=== PATIENT | male | born 1965 | race Caucasian/White ===

== ENCOUNTER 2017-06-17 18:32 | Emergency (ER) | payer OTHER ==
[~2017-06-17] VITALS: Ht 162.5 cm; Wt 54.4 kg
[~2017-06-17 18:32] MED LIST: B-1100 MG PO
[2017-06-17] MEDS ORDERED: CLINDAMYCIN HC300 MG PO (18:52)
[2017-06-17] MEDS ORDERED: NAPROSYN500 MG PO (18:52)
== END 2017-06-17 19:08 | disposition home or self-care (01) ==
LOC: ED 18:32
DX: K04.7 Periapical abscess without sinus (principal); F17.200 Nicotine dependence, unspecified, uncomplicated; Z98.890 Other specified postprocedural states; Z88.6 Allergy status to analgesic agent; Z91.030 Bee allergy status

== ENCOUNTER 2017-07-30 21:20 | Emergency (ER) | payer OTHER ==
[~2017-07-30] VITALS: Ht 162.5 cm; Wt 54.4 kg
[~2017-07-30 21:20] MED LIST changes: +CLINDAMYCIN HC300 MG PO; +NAPROSYN500 MG PO
[2017-07-30] MEDS ORDERED: AMLODIPINE BESY10 MG PO (21:31)
[2017-07-30] MEDS ORDERED: IBU800 M1 PO (21:31)
[2017-07-30] MEDS ORDERED: BREO ELLIPTA 11 EACH INH (21:32)
[2017-07-30 22:12] LABS: HEMATOCRIT 35.5 % (42.0-52.0); HEMOGLOBIN 11.9 g/dl (14.0-18.0); MEAN CELL VOLUME 93.9 fl (80.0-94.0); MEAN CORPUSCULAR HGB 31.5 pg (27.0-31.0); MEAN CORPUSCULAR HGB CONC 33.5 g/dl (33.0-37.0); MEAN PLATELET VOLUME 8.7 fl (9.6-12.3); PLATELET COUNT AUTOMATED 480 10*3/uL (130-400); RED BLOOD COUNT 3.78 10*6/uL (4.50-5.90); WHITE BLOOD COUNT 12.6 10*3/uL (4.8-10.8)
[2017-07-30 22:23] LABS: BUN 13 mg/dl (7-24); CHLORIDE 98 mmol/L (98-107); CREATININE 0.89 mg/dL (0.70-1.30); POTASSIUM 4.2 mmol/L (3.5-5.1); SODIUM 134 mmol/L (136-145)
[2017-07-30 22:31] LABS: ATYPICAL LYMPHS 3 % (0-0); BASOPHILS 2 % (0-1); PLATELET SUFFICIENCY NORMAL (NORMAL); TOTAL CELLS COUNTED 100 #CELLS
[2017-07-30 23:51] LABS: BILIRUBIN NEGATIVE (NEGATIVE); BLOOD NEGATIVE (NEGATIVE); CLARITY SL CLOUDY (CLEAR); COLOR YELLOW (YELLOW); GLUCOSE NEGATIVE (NEGATIVE); KETONE NEGATIVE (NEGATIVE); LEUKO ESTERASE NEGATIVE (NEGATIVE); NITRITE NEGATIVE (NEGATIVE); SPECIFIC GRAVITY 1.015 (1.005-1.030); UROBILINOGEN 0.2 E.U./dl (0.2-1.0)
[2017-07-31] MEDS ORDERED: Percocet 325 MG1 TAB PO (01:00)
[2017-08-01] MEDS ORDERED: Vitamin D PO (13:50)
== END 2017-07-31 01:13 | disposition left against medical advice (07) ==
LOC: ED 21:20
PROVIDERS: Emergency Medicine Emergency Medical Services
DX: M84.48XA Pathological fracture, other site, initial encounter for fracture (principal); C06.9 Malignant neoplasm of mouth, unspecified; F17.200 Nicotine dependence, unspecified, uncomplicated; Z90.89 Acquired absence of other organs; Z98.890 Other specified postprocedural states; Z79.899 Other long term (current) drug therapy; Z91.030 Bee allergy status; Z88.6 Allergy status to analgesic agent

== ENCOUNTER 2017-07-31 20:30 | Inpatient (IN) | payer OTHER ==
[~2017-07-31] VITALS: Ht 162.5 cm; Wt 53.6 kg
[~2017-07-31 20:30] MED LIST changes: +AMLODIPINE BESY10 MG PO; +BREO ELLIPTA 11 EACH INH; +IBU800 M1 PO; +Percocet 325 MG1 TAB PO
[2017-07-31 20:34] VITALS: BP 131/75
[2017-07-31 20:51] LABS: BASO # 0.1 10*3/uL (0.0-0.1); BASO % 0.9 % (0.0-1.0); EOS # 0.1 10*3/uL (0.0-0.4); EOS % 1.3 % (1.0-4.0); HEMATOCRIT 31.4 % (42.0-52.0); HEMOGLOBIN 10.9 g/dl (14.0-18.0); LYMPH # 2.4 10*3/uL (1.3-4.4); LYMPH % 24.5 % (27.0-41.0); MEAN CORPUSCULAR HGB 31.6 pg (27.0-31.0); MEAN CORPUSCULAR HGB CONC 34.7 g/dl (33.0-37.0); MEAN PLATELET VOLUME 8.5 fl (9.6-12.3); MONO # 1.2 10*3/uL (0.1-1.0); MONO % 12.2 % (3.0-9.0); NEUT # 5.9 10*3/uL (2.3-7.9); NEUT % 60.6 % (47.0-73.0); PLATELET COUNT AUTOMATED 434 10*3/uL (130-400); RED BLOOD COUNT 3.45 10*6/uL (4.50-5.90); RED CELL DISTRI WIDTH 12.8 % (0-14.5); WHITE BLOOD COUNT 9.8 10*3/uL (4.8-10.8)
[2017-07-31 21:00] LABS: BUN 6 mg/dl (7-24); CHLORIDE 91 mmol/L (98-107); CREATININE 0.62 mg/dL (0.70-1.30); POTASSIUM 3.3 mmol/L (3.5-5.1); SODIUM 126 mmol/L (136-145)
[2017-07-31 22:00] VITALS: BP 115/91
[2017-07-31 22:45] VITALS: BP 156/85
[2017-08-01 04:00] VITALS: BP 139/76
[2017-08-01 06:13] LABS: BASO # 0.1 10*3/uL (0.0-0.1); EOS # 0.3 10*3/uL (0.0-0.4); HEMATOCRIT 32.5 % (42.0-52.0); HEMOGLOBIN 11.2 g/dl (14.0-18.0); LYMPH % 20.4 % (27.0-41.0); MEAN CELL VOLUME 92.1 fl (80.0-94.0); MEAN CORPUSCULAR HGB 31.7 pg (27.0-31.0); MEAN CORPUSCULAR HGB CONC 34.5 g/dl (33.0-37.0); MONO # 1.3 10*3/uL (0.1-1.0); MONO % 13.2 % (3.0-9.0); NEUT # 6.1 10*3/uL (2.3-7.9); PLATELET COUNT AUTOMATED 451 10*3/uL (130-400); RED BLOOD COUNT 3.53 10*6/uL (4.50-5.90); RED CELL DISTRI WIDTH 12.9 % (0-14.5); WHITE BLOOD COUNT 9.8 10*3/uL (4.8-10.8)
[2017-08-01 06:31] LABS: ACT PARTIAL THROMBO TIME 24.3 SECONDS (20.8-31.5); INTERNATIONAL NORM RATIO 0.9 (2.0-3.5)
[2017-08-01 06:33] LABS: ALBUMIN 2.8 gm/dl (3.1-4.5); BUN 5 mg/dl (7-24); CHLORIDE 98 mmol/L (98-107); CHOLESTEROL 111 mg/dL (<200); CREATININE 0.59 mg/dL (0.70-1.30); PHOSPHOROUS 2.8 mg/dL (2.5-4.9); POTASSIUM 3.7 mmol/L (3.5-5.1); SGOT/AST 11 IU/L (3-35); SGPT/ALT 16 U/L (12-78); SODIUM 133 mmol/L (136-145); TOTAL PROTEIN 6.5 gm/dL (6.4-8.2); TRIGLYCERIDES 124 mg/dl (<150); VLDL CHOLESTEROL 25 mg/dL (6-40)
[2017-08-01 06:39] LABS: ALKALINE PHOSPHATASE 79 U/L (45-117); HDL CHOLESTEROL 40 mg/dl (40-60); LDL CHOLESTEROL 46 mg/dL (9-159)
[2017-08-01 08:00] VITALS: BP 141/79
[2017-08-01 12:00] VITALS: BP 155/86
[2017-08-01] MEDS ORDERED: Vitamin D PO (13:50)
[2017-08-01 16:00] VITALS: BP 150/76
== END 2017-08-01 20:37 | disposition short-term general hospital (02) | DRG 948 ==
LOC: ED 20:30 → EDHOLD 21:40 → 4E 22:00
PROVIDERS: Emergency Medicine Emergency Medical Services; Internal Medicine Nephrology
DX: G89.3 Neoplasm related pain (acute) (chronic) (principal); E87.8 Other disorders of electrolyte and fluid balance, not elsewhere classified; E44.0 Moderate protein-calorie malnutrition; M84.48XA Pathological fracture, other site, initial encounter for fracture; E87.1 Hypo-osmolality and hyponatremia; R13.10 Dysphagia, unspecified; C76.0 Malignant neoplasm of head, face and neck; D72.810 Lymphocytopenia; D72.821 Monocytosis (symptomatic); D64.9 Anemia, unspecified; Z96.641 Presence of right artificial hip joint; D47.3 Essential (hemorrhagic) thrombocythemia; E87.6 Hypokalemia; J44.9 Chronic obstructive pulmonary disease, unspecified; F17.210 Nicotine dependence, cigarettes, uncomplicated; I10 Essential (primary) hypertension; M16.0 Bilateral primary osteoarthritis of hip; E55.9 Vitamin D deficiency, unspecified; Z71.6 Tobacco abuse counseling; Z88.6 Allergy status to analgesic agent; Z91.030 Bee allergy status; Z79.899 Other long term (current) drug therapy; Z90.89 Acquired absence of other organs; Z83.3 Family history of diabetes mellitus; Z68.20 Body mass index [BMI] 20.0-20.9, adult

== ENCOUNTER 2017-09-12 11:00 | Emergency (ER) | payer OTHER ==
[~2017-09-12] VITALS: Ht 162.5 cm; Wt 54.4 kg
[~2017-09-12 11:00] MED LIST changes: +Vitamin D PO
== END 2017-09-12 11:52 | disposition home or self-care (01) ==
LOC: ED 11:00
DX: Z48.01 Encounter for change or removal of surgical wound dressing (principal); F17.200 Nicotine dependence, unspecified, uncomplicated; J44.9 Chronic obstructive pulmonary disease, unspecified; M19.90 Unspecified osteoarthritis, unspecified site; I10 Essential (primary) hypertension; Z98.890 Other specified postprocedural states; Z79.899 Other long term (current) drug therapy; Z90.89 Acquired absence of other organs; Z91.030 Bee allergy status; Z88.6 Allergy status to analgesic agent; Z85.89 Personal history of malignant neoplasm of other organs and systems

== ENCOUNTER 2017-09-27 12:55 | Emergency (ER) | payer OTHER ==
[~2017-09-27] VITALS: Ht 172.7 cm; Wt 72.6 kg
== END 2017-09-27 13:37 | disposition home or self-care (01) ==
LOC: ED 12:55
DX: K94.23 Gastrostomy malfunction (principal); F17.200 Nicotine dependence, unspecified, uncomplicated; Z90.89 Acquired absence of other organs; Z98.890 Other specified postprocedural states; Z79.899 Other long term (current) drug therapy; Z91.030 Bee allergy status; Z88.6 Allergy status to analgesic agent; Z85.818 Personal history of malignant neoplasm of other sites of lip, oral cavity, and pharynx

== ENCOUNTER 2017-10-03 21:58 | Emergency (ER) | payer OTHER ==
[~2017-10-03] VITALS: Ht 162.5 cm; Wt 49.9 kg
[2017-10-03 22:51] LABS: BASO % 0.3 % (0.0-1.0); EOS % 0.4 % (1.0-4.0); HEMATOCRIT 39.5 % (42.0-52.0); HEMOGLOBIN 13.5 g/dl (14.0-18.0); LYMPH # 1.2 10*3/uL (1.3-4.4); LYMPH % 17.7 % (27.0-41.0); MEAN CELL VOLUME 84.9 fl (80.0-94.0); MEAN CORPUSCULAR HGB CONC 34.2 g/dl (33.0-37.0); MEAN PLATELET VOLUME 9.5 fl (9.6-12.3); MONO # 0.8 10*3/uL (0.1-1.0); MONO % 11.6 % (3.0-9.0); NEUT # 4.7 10*3/uL (2.3-7.9); NEUT % 69.7 % (47.0-73.0); PLATELET COUNT AUTOMATED 181 10*3/uL (130-400); RED BLOOD COUNT 4.65 10*6/uL (4.50-5.90); RED CELL DISTRI WIDTH 15.3 % (0-14.5); WHITE BLOOD COUNT 6.8 10*3/uL (4.8-10.8)
[2017-10-03 23:09] LABS: ALBUMIN 3.9 gm/dl (3.1-4.5); ALKALINE PHOSPHATASE 127 U/L (45-117); BUN 9 mg/dl (7-24); CHLORIDE 86 mmol/L (98-107); CREATININE 0.76 mg/dL (0.70-1.30); POTASSIUM 3.8 mmol/L (3.5-5.1); SGOT/AST 33 IU/L (3-35); SGPT/ALT 25 U/L (12-78); SODIUM 126 mmol/L (136-145); TOTAL PROTEIN 8.1 gm/dL (6.4-8.2)
[2017-10-03 23:11] LABS: TROPONIN I < 0.015 ng/ml (<0.045)
== END 2017-10-04 09:42 | disposition short-term general hospital (02) ==
LOC: ED 21:58
PROVIDERS: Physician Assistant
DX: R13.10 Dysphagia, unspecified (principal); F17.200 Nicotine dependence, unspecified, uncomplicated; Z90.89 Acquired absence of other organs; Z79.899 Other long term (current) drug therapy; Z91.030 Bee allergy status; Z88.6 Allergy status to analgesic agent; Z85.818 Personal history of malignant neoplasm of other sites of lip, oral cavity, and pharynx

== ENCOUNTER 2017-10-28 19:37 | Inpatient (IN) | payer OTHER ==
[~2017-10-28] VITALS: Ht 162.5 cm; Wt 48.2 kg
--- NOTE | ~2017-10-28 | PR ---
[place], [place] PROGRESS NOTE NAME: SHONDA FLORES [facility] #: [id number] UNIT #: [id number] ROOM: 518 DOCTOR: JESSICA DENT MD,ANGELICA BIRTHDATE: [birth year] DOS: 10/30/2017 SUBJECTIVE: He has been noted comfortable at this time, sitting on the bed; reported reduction of the pain in the jaw. He has been eating some solid liquid and also getting feeding from the PEG tube. He has not been reported any symptoms of acute cough. There were no symptoms of chest pain reported. He was continued medical management of severe hypercalcemia related to the underlying malignant process. PHYSICAL EXAMINATION: VITAL SIGNS: For the patient which were recorded showed normal temperature, respiratory rate 18, heart rate 103, blood pressure 124/88. Pulse oxygen saturation room air 99% saturation. HEENT: Head was atraumatic. Deformities at the lower portion of the jaw noted from the current malignant process in the head and neck area involving the mandible and past surgical intervention. CARDIOVASCULAR: S1, S2 is audible. LUNGS: Without any wheeze or crackles today. ABDOMEN: Soft, nontender. EXTREMITIES: Without any acute edema. MUSCULOSKELETAL: The patient noted without any acute deformities. SKIN: Visible skin was noted scattered area of bruising. NEUROLOGIC: The patient appeared to be normal mental status at this time. However, the patient's speech still remains not understandable because of his head and neck cancer affecting the upper airways. REVIEW OF SYSTEMS: Cannot be completed the patient raise some question and answered them by writing. CBC today; WBC count 14.5, hemoglobin 10, hematocrit 31.8, platelet count is 69,000. BMP this morning. Calcium was noted as 11.8, sodium 130. IMPR ESSION: 1. Malignant hypercalcemia. 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 The patient noted with previous squamous cell cancer. 3. The patient with the refusal to be transferred to another facility at this time. I am not sure if he is clearly understanding his ongoing medical illness. He would like to be transferred [facility] and then after that to senior care facility. He has been given the option of transfer to [place] to his previous ENT specialist for further medical management. The patient refused to do so. Continue medical management, hypercalcemia of the current treatment. The calcium level has been noted with gradual reduction. Continuation at the present therapy, plan of management and care plan. Continue pain management as in progress. Overall prognosis remains guarded. Continue treatment for the pneumonia involving the left upper lobe. Antibiotic spectrum will be decreased once the culture of the blood remains available. Obtain a chest x-ray of in the morning to reassess. [place], [place] PROGRESS NOTE NAME: SHONDA FLORES John UNIT #: [id number] ROOM: 518 DOCTOR: ANGELICA BELL MD BIRTHDATE: [birth year] ANGELICA LOPEZ MD CM:DESTIN 18 ANGELICA DENT MD 10/30/171917 interface
--- NOTE | ~2017-10-28 | EKG ---
[place], [place] ELECTROCARDIOGRAM REPORT NAME: SHONDA FLORES UNIT #: [id number] ROOM: 518 DOCTOR: JULIO CESAR WILCOX MD BIRTHDATE: [birth year] DOS: 10/28/2017 TIME: 2013 hours. FINDINGS: 1. Normal sinus rhythm at 89 beats per minute. 2. Left ventricular hypertrophy with some mild repolarization abnormality. 3. No previous tracing is available for comparison. JULIO CESAR WILCOX MD CM:EKGRPT:ELECTROCARDIOGRAM REPORT [id number] JULIO CESAR WILCOX MD
--- NOTE | ~2017-10-28 | CON ---
[place], [place] REPORT OF CONSULTATION NAME: SHONDA FLORES [facility] #: [id number] UNIT #: [id number] ROOM: 518 DOCTOR: ANGELICA BELL MD BIRTHDATE: [birth year] DOS: 10/29/2017 PULMONARY CONSULTATION, EVALUATION, AND MANAGEMENT CONSULTATION REQUESTED BY: Hospitalist service. REASON FOR CONSULTATION: Assessment of possibility of metastatic cancer with possibility of pneumonia. HISTORY OF PRESENT ILLNESS: The patient contained a document, it is extremely limited because of the patient's inability to speak normally because of the past history of cancer of the larynx. The history of the patient obtained in this document is also review of the medical record from recent ER visit in 07/2017 and then later on for this admission. The patient was seen in the Emergency Room on 07/31/2017. The patient was noted with severe progressive pain, which is described in the neck area, difficulty to swallow food. The patient has a PEG tube in place as well. He has been known with past history of cancer of the larynx, which has been treated with the surgery via tracheotomy. The patient was advised at that time to be transferred to [facility] in the [facility]. The patient refused to do so and then discharged home. He has been taking the pain medications at home. The patient presented to the [facility] yesterday and admitted to the hospital on 10/28/2017. He has been noted with progressive pain, which is described in the jaw area as well as in the neck. He was also reporting symptoms of increased shortness of breath. Shortness of breath has been noted with progressive worsening. The patient's speech is noted unintelligible because of the difficulty speaking with current laryngeal cancer. He has been noted with symptoms of cough, which has been described intermittently with some sputum expectoration at time. He denies symptoms of hemoptysis or any chest pain with current symptom. Denies symptoms of wheezing. REVIEW OF SYSTEMS: Could not be completed effective because of difficulty of good understanding and hearing the questions. PAST MEDICAL HISTORY: 1. Known with history of cancer of the larynx. The patient with partial mandible resection. The patient with soft tissue mass. The patient with tracheotomy in the past few years. 2. History of chronic continued nicotine abuse. 3. Ascending aortic aneurysm of the thorax, which was currently noted. 4. Degenerative arthritis. 5. Chronic obstructive pulmonary disease. 6. Dysphagia secondary to head and neck cancer. 7. Essential hypertension. 8. Progressive malignant tumor in the neck with destruction partially of the mandible again. 9. Vitamin D deficiency. PAST SURGICAL HISTORY: Noted, 1. Tonsillectomy. [place], [place] REPORT OF CONSULTATION NAME: SHONDA FLORES [facility] #: [id number] UNIT #: [id number] ROOM: 518 DOCTOR: ANGELICA BELL MD BIRTHDATE: [birth year] 2. Pyloroplasty. 3. Right hip arthroplasty. 4. PEG tube insertion. 5. Surgery for removal of the cancer for the patient's head and neck. SOCIAL HISTORY: The patient stated that he is , has 2 children, lives at home. He reported history of tobacco use. The patient has 1 pack of cigarettes a day and used snuff in the past as well. He does have history of alcohol use previously that was discontinued a few years ago. No history of illicit drug use. FAMILY HISTORY: Father at the age of 7070 years old, complications of alcohol dependence. Mother at the age of 60+ years with complication related to diabetes mellitus. HOME MEDICATIONS: Only listed as Norvasc 10 mg daily. DRUG ALLERGIES: REPORTED ALLERGIES TO THE ASPIRIN CAUSING GI INTOLERANCE. PHYSICAL EXAMINATION: GENERAL: A 52-year-old white male patient who has been currently sitting on his bed without any acute distress. VITAL SIGNS: The patient's height was recorded by the nursing staff. The patient on admission is 5 feet 4 inches, weight of 106 pounds, BMI 18.2. Vital signs for the patient which were recorded showed temperature noted normal, respiratory rate 16-18, heart rate 85-105, blood pressure 130/84-111/76. Pulse oxygen saturation on room air was 96% saturation. HEENT: Head was atraumatic. Eyes nonicterus. Significant deformity the patient noted in the neck and lower portion of the jaw for the patient's surgery and the cancer. Redness in the area of the lower portion of the face surrounding the neck was noted. Tenderness is also noted. Palpation bilaterally. There were no obvious sinus tracts or infection noted. Tracheostomy was seen. CARDIOVASCULAR: S1, S2 is audible. LUNGS: Noted with moderate general reduction in breath sounds without any wheezing or crackles. ABDOMEN: Soft, noted with PEG tube in place. There was no tenderness. Bowel sounds present. EXTREMITIES: Without any acute edema or clubbing. There was no cyanosis. CENTRAL NERVOUS SYSTEM: Limited examination, but there are no focal deficits. SKIN: No lesions or rashes. MUSCULOSKELETAL: No deformities. LABORATORY DATA: The calcium level that was done in July 2017 visit were noted as normal. PT and PTT of the patient that was done yesterday normal. CMP of the patient done on 10/28/2017, BUN 10, creatinine 0.9. Sodium 128, chloride of 90. Calcium 12.5 for the patient, uncorrected with the albumin, which are noted 2.9. Ionized calcium noted as 6.71, the upper limit of normal is 5.6. The CBC of patient that was done yesterday was 12.3, hemoglobin 11.9, hematocrit 34.9, platelet count normal. The CBC of the patient that was done this morning, WBC [place], [place] REPORT OF CONSULTATION NAME: SHONDA FLORES UNIT #: [id number] ROOM: 518 DOCTOR: JESSICA DENT MD,[facility] BIRTHDATE: [birth year] count normal, hemoglobin 10.6, hematocrit 32.9, platelet count noted as normal 365,000. BMP this morning repeated normal BUN, creatinine, calcium continue to be elevated at 12.7 with sodium 130, chloride of 90. PTH intact were noted as low at 7.3. One view chest x-ray of the patient that was done on 10/28/2017, the patient noted that the nodules were noted in the lungs. CT scan of the chest, which was done without contrast for this patient was personally reviewed. The mediastinal window view that was done for this patient shows there was no significant lymphadenopathy seen. Lung window view shows evidence of changes of centrilobular emphysema for patient in the upper lung with patchy small area of infiltration noted in the left upper lung. Irregular nodule noted in the right apex. One nodule noted in the patient's subpleural, 2 of those actually were noted with central cavitation. Additional nodule was noted with following bronchovascular bundles. Nodule noted in the left lung as well, which were noted in subpleural distribution, area of consolidation or mass lesion which appeared to be pleural base the patient noted in the left mid lung. There were no pleural effusions. IMPRESSION: 1. The patient will be currently admitted to the hospital. The patient with severe hypercalcemia, progressive jaw pain for the patient with advancing malignancy causing destruction of the mandible for the patient in the last couple of months. 2. Hypercalcemia most likely secondary to squamous cell cancer. 3. Strong possibility of metastatic cancer of the head and neck, to the lungs will be considered. 4. Questionable pneumonia. Consolidation could be considered in the left mid lung abnormality. 5. The patient with chronic nicotine dependence. 6. Chronic obstructive pulmonary disease. 7. The patient with nonadherence with the treatment and not following recommendation for the medical management known previously in the past few months, as they will not be treated for the current malignant process, which noted progressively advanced. 8. Chronic nicotine dependence as well. PLAN OF MANAGEMENT: 1. 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 2. IV fluid hydration for the patient, which will also correct the sodium level as well. 3. Adequate pain management should be initiated. The patient has been started on broad spectrum intravenous antibiotics to be continued until the culture results known and then de-escalation of antibiotic will be recommended. Strong consideration for the patient's transfer to [facility] to his known ENT physician for further medical management of the current cancer and also possible consideration of radiation therapy at least to improve the pain, otherwise pain will be considered extremely difficult to control because of the bony involvement of the mandible. Try to talk if necessary to maintain pulse ox saturation 90%. Bronchodilator help mobilize secretion. Monitor culture [place], [place] REPORT OF CONSULTATION NAME: SHONDA FLORES UNIT #: [id number] ROOM: 518 DOCTOR: ANGELICA BELL MD BIRTHDATE: [birth year] results. Other supportive therapy, plan of management and care plan. DVT prophylaxis. Assessment and management has been discussed with the medical care evaluation specialist, who has been involved with this patient's care on the phone in detail and recommendations were discussed and acknowledged. Other supportive therapy, plan of management and care at this time. Usual care, other supportive plan of care and treatment and therapies. Thanks for allowing me to participate in the care of this patient. ANGELICA LOPEZ MD CM:CONSTR:REPORT OF CONSULTATION [id number] 10/30/17 0102 interface
[2017-10-28 19:39] VITALS: BP 132/93
[2017-10-28 20:38] LABS: HEMATOCRIT 34.9 % (42.0-52.0); HEMOGLOBIN 11.9 g/dl (14.0-18.0); MEAN CELL VOLUME 82.5 fl (80.0-94.0); MEAN CORPUSCULAR HGB 28.1 pg (27.0-31.0); MEAN CORPUSCULAR HGB CONC 34.1 g/dl (33.0-37.0); MEAN PLATELET VOLUME 9.1 fl (9.6-12.3); PLATELET COUNT AUTOMATED 397 10*3/uL (130-400); RED BLOOD COUNT 4.23 10*6/uL (4.50-5.90); RED CELL DISTRI WIDTH 14.8 % (0-14.5); WHITE BLOOD COUNT 12.3 10*3/uL (4.8-10.8)
[2017-10-28 20:49] LABS: ACT PARTIAL THROMBO TIME 24.7 SECONDS (20.8-31.5)
[2017-10-28 20:54] LABS: ALBUMIN 2.9 gm/dl (3.1-4.5); ALKALINE PHOSPHATASE 88 U/L (45-117); BUN 10 mg/dl (7-24); CHLORIDE 90 mmol/L (98-107); CREATININE 0.92 mg/dL (0.70-1.30); LIPASE 77 U/L (73-393); POTASSIUM 3.7 mmol/L (3.5-5.1); SGOT/AST 16 IU/L (3-35); SGPT/ALT 24 U/L (12-78); SODIUM 128 mmol/L (136-145); TOTAL PROTEIN 7.2 gm/dL (6.4-8.2)
[2017-10-28 20:56] LABS: TROPONIN I < 0.015 ng/ml (<0.045)
[2017-10-28 21:03] LABS: TOTAL CELLS COUNTED 100 #CELLS
[2017-10-28 21:06] LABS: PLATELET SUFFICIENCY NORMAL (NORMAL)
[2017-10-28 21:07] LABS: POLYCHROMASIA SLIGHT
[2017-10-28 23:47] VITALS: BP 124/97
[2017-10-29 00:30] VITALS: BP 124/97
[2017-10-29 01:16] VITALS: BP 130/84
[2017-10-29 06:49] LABS: BASO % 0.4 % (0.0-1.0); EOS # 0.1 10*3/uL (0.0-0.4); EOS % 1.3 % (1.0-4.0); HEMATOCRIT 32.9 % (42.0-52.0); HEMOGLOBIN 10.6 g/dl (14.0-18.0); LYMPH # 1.5 10*3/uL (1.3-4.4); LYMPH % 15.8 % (27.0-41.0); MEAN CORPUSCULAR HGB 27.7 pg (27.0-31.0); MEAN CORPUSCULAR HGB CONC 32.2 g/dl (33.0-37.0); MONO # 1.3 10*3/uL (0.1-1.0); MONO % 13.6 % (3.0-9.0); NEUT # 6.6 10*3/uL (2.3-7.9); NEUT % 68.6 % (47.0-73.0); PLATELET COUNT AUTOMATED 365 10*3/uL (130-400); RED BLOOD COUNT 3.83 10*6/uL (4.50-5.90); RED CELL DISTRI WIDTH 15.2 % (0-14.5); WHITE BLOOD COUNT 9.7 10*3/uL (4.8-10.8)
[2017-10-29 06:50] LABS: MEAN CELL VOLUME 85.9 fl (80.0-94.0)
[2017-10-29 07:20] LABS: BUN 8 mg/dl (7-24); CHLORIDE 94 mmol/L (98-107); CHOLESTEROL 101 mg/dL (<200); CREATININE 1.02 mg/dL (0.70-1.30); FREE T4 0.87 ng/dl (0.76-1.46); HDL CHOLESTEROL 54 mg/dl (40-60); LDL CHOLESTEROL 31 mg/dL (9-159); PHOSPHOROUS 2.4 mg/dL (2.5-4.9); SODIUM 130 mmol/L (136-145); TRIGLYCERIDES 78 mg/dl (<150); VLDL CHOLESTEROL 16 mg/dL (6-40)
[2017-10-29 08:00] VITALS: BP 111/76
[2017-10-29 08:17] LABS: VITAMIN D, 25-HYDROXY 24.5 ng/mL (30-100)
[2017-10-29] MEDS ORDERED: NORVASC10 MG PO (13:25)
[2017-10-29 16:00] VITALS: BP 135/90
[2017-10-29 20:00] VITALS: BP 127/80; BP 138/88
[2017-10-30] VITALS: BP 112/80
[2017-10-30 06:29] LABS: BASO # 0.1 10*3/uL (0.0-0.1); BASO % 0.4 % (0.0-1.0); EOS # 0.2 10*3/uL (0.0-0.4); EOS % 1.6 % (1.0-4.0); HEMATOCRIT 31.8 % (42.0-52.0); HEMOGLOBIN 10.1 g/dl (14.0-18.0); LYMPH # 1.5 10*3/uL (1.3-4.4); LYMPH % 10.5 % (27.0-41.0); MEAN CELL VOLUME 87.4 fl (80.0-94.0); MEAN CORPUSCULAR HGB 27.7 pg (27.0-31.0); MEAN CORPUSCULAR HGB CONC 31.8 g/dl (33.0-37.0); MEAN PLATELET VOLUME 8.9 fl (9.6-12.3); MONO # 1.1 10*3/uL (0.1-1.0); MONO % 7.2 % (3.0-9.0); NEUT # 11.6 10*3/uL (2.3-7.9); PLATELET COUNT AUTOMATED 369 10*3/uL (130-400); RED BLOOD COUNT 3.64 10*6/uL (4.50-5.90); WHITE BLOOD COUNT 14.5 10*3/uL (4.8-10.8)
[2017-10-30 07:06] LABS: BUN 11 mg/dl (7-24); CHLORIDE 95 mmol/L (98-107); CREATININE 0.96 mg/dL (0.70-1.30); POTASSIUM 3.7 mmol/L (3.5-5.1); SODIUM 130 mmol/L (136-145)
[2017-10-30 08:00] VITALS: BP 124/88
== END 2017-10-30 11:50 | disposition left against medical advice (07) | DRG 871 ==
LOC: ED 19:37 → 5E 23:21 → EDHOLD 23:21 → 5E 23:56
PROVIDERS: Family Medicine; Internal Medicine; Nurse Practitioner Family
DX: A41.9 Sepsis, unspecified organism (principal); J18.9 Pneumonia, unspecified organism; E44.0 Moderate protein-calorie malnutrition; I71.2 Thoracic aortic aneurysm, without rupture; Z93.0 Tracheostomy status; R13.10 Dysphagia, unspecified; C76.0 Malignant neoplasm of head, face and neck; E87.1 Hypo-osmolality and hyponatremia; Z68.1 Body mass index [BMI] 19.9 or less, adult; J44.9 Chronic obstructive pulmonary disease, unspecified; I35.0 Nonrheumatic aortic (valve) stenosis; I10 Essential (primary) hypertension; M19.90 Unspecified osteoarthritis, unspecified site; D64.9 Anemia, unspecified; M84.48XD Pathological fracture, other site, subsequent encounter for fracture with routine healing; Z96.641 Presence of right artificial hip joint; E55.9 Vitamin D deficiency, unspecified; R91.1 Solitary pulmonary nodule; R73.9 Hyperglycemia, unspecified; Z53.21 Procedure and treatment not carried out due to patient leaving prior to being seen by health care provider; Z72.0 Tobacco use; Z71.6 Tobacco abuse counseling; Z88.6 Allergy status to analgesic agent; Z91.030 Bee allergy status; Z79.899 Other long term (current) drug therapy; Z90.89 Acquired absence of other organs; Z83.3 Family history of diabetes mellitus; Z81.1 Family history of alcohol abuse and dependence; Z81.2 Family history of tobacco abuse and dependence; Z93.1 Gastrostomy status; Z85.21 Personal history of malignant neoplasm of larynx